=== PATIENT | female | born 1990 | race Asian ===

== ENCOUNTER → 2025-04-29 | Outpatient (CLI) | payer OTHER ==
[2025-04-29 14:25] LABS: IMMATURE GRANULOCYTE ABSOLUTE 0.04 K/uL (0-1); NUCLEATED RED BLOOD CELLS 0.0 % (0.0-0.19); PLATELET COUNT (AUTO) 349 K/uL (130-400); RED BLOOD CELL COUNT(AUTO) 4.75 MIL/uL (4.00-5.50); RED CELL DISTRIBUTION WIDTH 14.7 % (11.0-15.5); WHITE BLOOD COUNT (AUTO) 10.4 K/uL (4.8-10.8)
[2025-04-29 15:07] LABS: ASPARTATE AMINOTRANSFERASE 13.0 U/L (10-37); CREATININE 0.6 mg/dL (0.5-1.0); GLOMERULAR FILTR. RATE CALC 120.0 mL/min (>90); GLUCOSE,RANDOM 128.0 mg/dL (70-105); SODIUM SERUM 140.0 mmol/L (136-145); TOTAL PROTEIN, SERUM 7.4 g/dL (6.0-8.3); UREA NITROGEN, BLOOD 8.0 mg/dL (7-18)
--- NOTE | 2025-04-29 21:54 | HMCIMG ---
EXAM: SCOLIOSIS RADIOGRAPH, 1 VIEW Technique: Standing stitched anteroposterior radiograph of the thoracic and lumbar spine was obtained. Study is limited by single anteroposterior view, which reduces sensitivity for sagittal alignment and subtle fractures. Clinical Information: Low back pain; scoliosis. Comparison: None available. Findings: Spinal alignment: No scoliotic curvature is identified on the coronal projection. The C7 shannan line is centered over the sacrum, indicating maintained coronal balance. Vertebral body height: Heights are maintained throughout without compression deformity. Intervertebral disc spaces: Disc spaces are preserved for this projection. Spondylolisthesis: No anterior or posterior translation is identified on this anteroposterior view. Posterior elements: Pedicles are symmetric without focal defect on this projection. Pelvis and hips (as included): No pelvic tilt or leg length discrepancy is suggested. Ribs and soft tissues: No acute abnormality is identified. Impression: * No radiographic evidence of scoliosis on this standing anteroposterior stitched view. * Preserved vertebral body heights and disc spaces without spondylolisthesis. /[place]
--- NOTE | 2025-04-29 21:57 | HMCIMG ---
EXAM: CR Lumbar Spine, 3 View. CLINICAL HISTORY: LOW BACK PAIN; SCOLIOSIS COMPARISON: None provided. FINDINGS: BONES: No acute fracture or aggressive appearing osseous lesion. ALIGNMENT: Alignment is within normal limits. No significant scoliosis. DISCS / DEGENERATIVE CHANGES: The disc spaces are preserved. SOFT TISSUES: The soft tissues are unremarkable. IMPRESSION: 1. No acute findings. /[place]
[2025-04-30 10:28] LABS: LDL DIRECT 194 mg/dL (0-99)
== END | disposition home or self-care (01) ==
LOC: RAH 13:34
PROVIDERS: ATTEND Internal Medicine
DX: G43.809 Other migraine, not intractable, without status migrainosus (principal); M41.9 Scoliosis, unspecified
CPT/HCPCS: 36415; 72081; 72100; 80053; 80061; 82306; 82607; 83036; 84443; 85025

== ENCOUNTER → 2025-04-30 | Outpatient (CLI) | payer OTHER ==
[2025-04-30 09:02] LABS: IMMATURE GRANULOCYTE ABSOLUTE 0.02 K/uL (0-1); NUCLEATED RED BLOOD CELLS 0.0 % (0.0-0.19); PLATELET COUNT (AUTO) 291 K/uL (130-400); RED BLOOD CELL COUNT(AUTO) 3.85 MIL/uL (4.00-5.50); RED CELL DISTRIBUTION WIDTH 12.5 % (11.0-15.5); WHITE BLOOD COUNT (AUTO) 5.2 K/uL (4.8-10.8)
[2025-04-30 09:32] LABS: ASPARTATE AMINOTRANSFERASE 14.0 U/L (10-37); CREATININE 0.5 mg/dL (0.5-1.0); GLOMERULAR FILTR. RATE CALC 125.0 mL/min (>90); GLUCOSE,RANDOM 94.0 mg/dL (70-105); LDL DIRECT 60.0 mg/dL (0-99); SODIUM SERUM 142.0 mmol/L (136-145); TOTAL PROTEIN, SERUM 7.2 g/dL (6.0-8.3); UREA NITROGEN, BLOOD 12.0 mg/dL (7-18)
== END | disposition home or self-care (01) ==
LOC: LAB 08:33
PROVIDERS: ATTEND Internal Medicine
DX: G43.809 Other migraine, not intractable, without status migrainosus (principal); M41.9 Scoliosis, unspecified
CPT/HCPCS: 36415; 80053; 80061; 82306; 83036; 84443; 85025